=== PATIENT | male | born 1985 | race Caucasian/White ===

== ENCOUNTER 2023-03-29 22:16 | Emergency (ER) | payer BC ==
[2023-03-29 22:20] VITALS: BP 157/100
[2023-03-29] MEDS ORDERED: predniSONE 20 MG TAB PO STA (22:27)
--- NOTE | 2023-03-29 22:34 | ED EENT ---
History of Present Illness General Stated Complaint: R EAR/JAW PAIN Source: patient History of Present Illness Date Seen by Provider: Mar 29, 2023 Time Seen by Provider: 22:18 Initial Comments 38 yo male presenting to the ED with complaint of pain with swallowing on the right side of throat. He has a sharp pain from his ear to the right side of his throat when swallowing in the last 24 hours. He was unsure if he was having an allergic reaction to an apple juice drink he has been using or what was causing the pain. He has not taken anything for the pain. He did not see anyone during the day in the clinic about the symptoms. He was still having pain with swallowing tonight and it was annoying him so he came to the ED. he was concerned he was having an allergic reaction and felt like the right side of his tongue was swelling. He denies fever, chills, cough, exposure to ill contacts. He has been moving in the last week and felt that he has been tired from that and around a lot of dust and dirt. Timing/Duration: abrupt Severity: moderate Location: throat Prearrival Treatment: no prearrival treatment Modifying Factors: Worse With Other (swallowing makes him have the sharp pain on right side from his ear to his throat) Associated Symptoms: No change in hearing, No cough, No drooling, No ear drainage, No facial pain/swelling, No fever, No malaise, No nasal congestion/drainage, No poor fluid intake, No poor solids intake, No sinus infection; sore throat; No tooth pain, No voice change Allergies and Home Medications Allergies Coded Allergies: No Known Drug Allergies (Unverified , 03/29/23) Patient Home Medication List Home Medication List Reviewed: Yes Review of Systems Review of Systems Constitutional: No chills, No fever Eyes: No Symptoms Reported Ears: See HPI Nose: no symptoms reported Mouth: no symptoms reported Throat: see HPI Respiratory: no symptoms reported Cardiovascular: no symptoms reported Gastrointestinal: no symptoms reported Musculoskeletal: no symptoms reported Skin: no symptoms reported Past Bhmlvwh-Wlculu-Cwrdvc Hx Past Medical History Surgery/Hospitalization HX: Dental extraction March 23, 2023 Physical Exam Vital Signs Vital Signs - First Documented 03/29/23 22:20 Pulse 84 Resp 16 B/P (MAP) 157/100 (119) Pulse Ox 100 O2 Delivery Room Air Height, Weight, BMI Height: '" Weight: lbs. oz. kg; BMI Method: General Appearance: WD/WN, no apparent distress Eyes: bilateral eye PERRL, bilateral eye EOMI Ears: bilateral ear foreign body (cerumen occluding both canals. no drainage or erythema) Mouth/Throat: pharynx swelling (mild swelling and erythema to right posterior pharynx.); No tonsillar exudate; other (he has a bright red area on his tongue that appears to be from something he had eaten or drank causing staining) Neck: non-tender, full range of motion, supple, normal inspection Cardiovascular: normal peripheral pulses, regular rate, rhythm Respiratory: chest non-tender, lungs clear, normal breath sounds Gastrointestinal: normal bowel sounds, non tender, soft, no pulsatile mass Neurologic/Psychiatric: alert, oriented x 3 Skin: warm/dry Progress/Results/Core Measures Results/Orders Lab Results Laboratory Tests Test 03/29/23 22:28 Range/Units Group A Streptococcus Screen NEGATIVE NEGATIVE My Orders Orders - SIERRA DAIGLE MD Prednisone Tablet (Deltasone Tablet) (03/29/23 22:27) Rapid Strep A Screen (03/29/23 22:27) Throat Culture Strep A Confirm (03/29/23 22:28) Vital Signs/I&O 03/29/23 22:20 Pulse 84 Resp 16 B/P (MAP) 157/100 (119) Pulse Ox 100 O2 Delivery Room Air Progress Progress Note #1: Progress Note Potential diagnosis of strep pharyngitis, allergic reaction, lymphadenopathy, cerumen impaction. Obtain rapid strep swab and administer a single dose of Prednisone 40 mg po x 1 to try and help with swelling and pain. Encouraged to get Cerumenex or Debrox ear drops over the counter to help with ear wax build up as it could be contributing to his symptoms as well. Progress Note #2: Time: 22:39 Progress Note Rapid strep swab is negative. A culture will be reflexed and if positive will get him started on antibiotic. In the meantime the steroid should help with throat pain and swelling and using the ear wax removal drops should also help as cerumen impaction may be contributing to his pain and symptoms. Encouraged to check with clinic if not improving or having additional symptoms. Departure Impression Primary Impression: Impacted cerumen of both ears Additional Impressions: Pharyngitis Qualified Codes: J02.9 - Acute pharyngitis, unspecified Throat irritation Disposition: HOME, SELF-CARE Condition: Stable Departure-Patient Inst. Decision time for Depature: 22:41 Referrals: NO,LOCAL PHYSICIAN (PCP) Primary Care Physician [facility] [place] Patient Instructions: Sore Throat, Adult ED, Ear Wax Impaction ED, How to Use Ear Drops Add. Discharge Instructions: Stay well hydrated and drink plenty of water and electrolyte drinks. Avoid the apple juice drink that you felt was causing you some throat irritation. Use some over the counter ear wax drops to help dissolve and loosen the wax in your ears. Some brand names include Debrox and Cerumenex. There is usually a store brand as well. This would be in the pharmacy section of the store and is available over the counter. If worsening or not improving then check with clinic for continued evaluation. SIERRA DAIGLE MD Mar 29, 2023 22:34
== END 2023-03-29 22:43 | disposition home or self-care (01) ==
LOC: ER FS 22:18
DX: H61.23 Impacted cerumen, bilateral (principal); J02.9 Acute pharyngitis, unspecified; Z28.310 Unvaccinated for COVID-19
CPT/HCPCS: 87430; 99283